=== PATIENT | female | born 1995 | race Caucasian/White ===

== ENCOUNTER 2019-04-26 10:36 | Inpatient (IN) | payer BC, SELFPAY ==
[2019-04-26] VITALS (72 sets, daily range): BP systolic 0–140; BP diastolic 0–82; PULSE 87–130; RESP 18; TEMP 36.4–37.2; O2SAT 93–100; BMI 22.9
[2019-04-26] MEDS: miSOPROStol 100 mcg tablet 25 MCG XX (12:06)
[2019-04-26 12:39] LABS: Basophils % 0.2 %; Eosinophils # 0.1 10^3/uL (0.0-0.8); Eosinophils % 0.6 %; Lymphocytes # 1.8 10^3/uL (0.8-4.8); Lymphocytes % 14.9 %; Mean Corpuscular HGB Conc 31.4 g/dL (30.0-36.0); Mean Corpuscular Hemoglobin 27.8 pg (28.0-34.0); Mean Corpuscular Volume 88.4 fL (81-99); Mean Platelet Volume 11.7 fL (7.4-10.4); Monocytes # 0.7 10^3/uL (0.2-0.9); Monocytes % 5.9 %; Neutrophils # 9.4 10^3/uL (1.8-7.7); Neutrophils % 77.7 %; Nucleated Red Blood Cells % 0 %; Platelet Count 217 10^3/cmm (130-400); Red Blood Count 3.96 10^6/uL (4.1-5.3); White Blood Count 12.1 10^3/uL (4.0-10.0)
[2019-04-26] MEDS: ondansetron 2 mg/ML SDV 2 mL 4 MG IVP ×2 (16:41→20:06)
[2019-04-26] MEDS: lactated ringers 1,000 ML 999 ML IV ×3 (17:25→22:15)
--- NOTE | 2019-04-26 18:32 | P.ANES_ITS ---
Anesthesia Procedures Procedure/Date: 04/26/19 Epidural: Time Out Performed: Yes Consents Signed: Procedure Consent Consent: from patient, risks and benefits reviewed and patient agrees to proceed Lumbar Level: L3-L4 Epidural position: sitting Epidural procedure: sterile prep of area, 1% lidocaine to numb the area, 18 g needle, negative for p aresthesia passed, neg for paresthesia, test dose given, 1.5% xylocaine 1:200k epi, placed PCEA, no systemic response, sterile dressing applied, L.U.D. no apparent complications and 0.2% Ropiavacaine @ mls/hr Additional Comments: 13 mL/hr
--- NOTE | 2019-04-26 20:50 | ANES.PROC ---
Anesthesia Procedures Procedure/Date: 04/26/19 Procedure Narrative: OB called concerning patient having R sided pain despite bolus attempts and tilting patient to R side. Upon my arrival, patient's cervix was known to be complete. pulled epidural catheter back 1 cm, bolus with 100mcg Fentanyl and Lidocaine PF 50mg. Roylance on his way to deliver baby.
[2019-04-26] MEDS: oxytocin 30 UNIT/500 ML BAG 600 UNIT IV (22:18)
--- NOTE | 2019-04-26 22:47 | P.PCNOB_ITS ---
Delivery Note: Date of delivery: 04/26/19 Pre-delivery diagnoses: 24-year-old 1 at 38 weeks estimated gestational age presenting with spontaneous rupture of membranes Post-delivery diagnoses: Status post spontaneous vaginal delivery Anesthesia: epidural Delivering Physician: Crow Mancuso MD Estimated blood loss (mL): 250 Delivery: DELIVERY: The patient progressed to complete without difficulty. She delivered a male with a weight of 7 pounds 14 ounces with Apgars of 10, 9. The baby was delivered from the CHASITY position. The baby's mouth and nose were suctioned at the site of the perineum. The baby was then completely delivered and placed on the mother's abdomen. The cord was then clamped and cut. There was no nuchal cord. There was no meconium. The placenta and 3 vessel cord were delivered intact shortly thereafter. The perineum and vaginal vault were carefu lly examined. The patient had a right vaginal wall lack, as well as a left anterior labia minora laceration that did not require repair. She also had a second-degree posterior midline laceration that was repaired with 3-0 Vicryl in a running lock stitch in the usual fashion. Both the mother and the baby were in stable condition. Post-Delivery Status: Good Coding Level of Care Code Acute Diffusion Operator for Harjeet Arizmendi
[2019-04-27] VITALS (19 sets, daily range): BP systolic 99–118; BP diastolic 58–74; PULSE 82–102; RESP 16–18; TEMP 36.5–36.8; O2SAT 97
[2019-04-27] MEDS: benzocaine-menthol 78 gm Canister 1 SPRAY TOPICAL (06:23)
[2019-04-27] MEDS: acetaminophen 325 mg Tablet 650 MG PO (06:26)
[2019-04-27] MEDS: prenatal vitamin Capsule 1 CAP PO (09:13)
[2019-04-27] MEDS: docusate sodium 100 mg Capsule PO ×2 (09:13→18:10)
--- NOTE | 2019-04-27 09:14 | PC.NURSE ---
pain reported in perineal area suggested sitz bath
--- NOTE | 2019-04-27 11:13 | PM.OBGYDC ---
Discharge Providers PRESS BRAKE OPERATOR Date of Admission: 04/26/19 10:36 Date of Discharge: 04/27/19 Attending Provider at Admission: Crow Mancuso MD Attending Provider at Discharge: Crow Mancuso MD Diagnoses at Discharge Discharge Diagnosis (1) 38 weeks gestation of : Status: Acute (2) Normal vaginal delivery: Status: Acute Reason for Visit Reason for Visit: Reason For Visit: LEAKING FLUID Hospital Course Hospital Course: The patient presented to the hospital complaining of leaking fluid. It was determined that she had spontaneous rupture of membranes. She was given Cytotec 25 mcg sublingual x1. She began to progress. An epidural was placed. She progressed to complete and had an unremarkable spontaneous vaginal delivery. Her course was also unremarkable. She had mild bleeding. Her pain was well controlled with ibuprofen. There were no complications. Information Peripartum Data: Infant Delivery Method: Vaginal Physical Exam Narrative: EXAM NARRATIVE: The patient is alert and oriented. She looks comfortable. Her lungs are clear to auscultation bilaterally. Her heart has a regular rate and rhythm. Her fundus is at least 3 cm below the umbilicus. She has no edema. Urinary Catheter Management^: [place]: Cath Placed During This Visit: no Discharge Data Data Completed and Pending: Pending at discharge Category Date Time Status Hemagram Routine Lab 04/27/19 10:45 Ordered Labs from last 24 hours 04/26/19 12:15 WBC 12.1 H RBC 3.96 L Hgb 11.0 L Hct 35.0 L MCV 88.4 MCH 27.8 L MCHC 31.4 RDW 12.0 L Plt Count 217 MPV 11.7 H Neut % (Auto) 77.7 Lymph % (Auto) 14.9 [place] % (Auto) 5.9 Eos % (Auto) 0.6 Baso % (Auto) 0.2 Neut # (Auto) 9.4 H Lymph # (Auto) 1.8 [place] # (Auto) 0.7 Eos # (Auto) 0.1 Baso # (Auto) 0.0 Nucleated RBC % (a uto) 0 Nucleated RBCs # 0.0 Vitals: Last Vital Signs Temp 97.7 F 04/27/19 09:20 Pulse 98 04/27/19 09:20 Resp 16 04/27/19 09:20 BP 104/68 04/27/19 09:20 Pulse Ox 97 04/27/19 09:20 Discharge Plan Discharge Patient Disposition: Home, Self-Care Condition: Stable Prescriptions: New ibuprofen 800 mg tablet 800 mg PO Q8H Qty: 30 RF: 1 Continued Vitamin Plus Low Iron 27 mg iron- 1 mg tablet RF: 0 Pepcid 20 mg Tablet 20 mg PO BID RF: 0 Discontinued Vitamin Plus Low Iron 27 mg iron- 1 mg tablet RF: 0 Discharge Orders: Discharge Order (Routine); Ordered 04/27/19 Ordered By: Crow Mancuso Referrals: Crow Mancuso MD [Family Provider] - 6 Weeks Discharge Diet: Regular Discharge Activity: Limit activity as instructed Discharge Attestations PRESS BRAKE OPERATOR Time Spent in Discharge Care*: less than 30 min Coding Level of Care Code Acute Planning Advisor for Chg Fwd Diagnoses 38 weeks gestation of Z3A.38 Normal vaginal delivery O80
[2019-04-27 11:49] LABS: Hemoglobin 9.7 g/dL (11.5-15.3); Mean Corpuscular HGB Conc 31.3 g/dL (30.0-36.0); Mean Corpuscular Hemoglobin 27.6 pg (28.0-34.0); Mean Corpuscular Volume 88.3 fL (81-99); Mean Platelet Volume 11.6 fL (7.4-10.4); Platelet Count 221 10^3/cmm (130-400); Red Blood Count 3.51 10^6/uL (4.1-5.3); Red Cell Distribution Width 12.3 % (12.1-15.1); White Blood Count 15.6 10^3/uL (4.0-10.0)
== END 2019-04-27 23:00 | disposition home or self-care (01) | DRG 807 ==
LOC: OPOB 11:05 → OBGYN 11:22
PROVIDERS: Admitting Provider Family Medicine; Family Provider Family Medicine; Visit Provider Family Medicine
DX: O70.1 Second degree perineal laceration during delivery (principal); Z37.0 Single live birth; Z3A.38 38 weeks gestation of pregnancy
CPT/HCPCS: 36415; 51702; 59409; 85025; 85027; 96375; 98960; 99221; J2001; J2405; J2795; J3010